=== PATIENT | female | born 1960 | race Caucasian/White ===

== ENCOUNTER 2017-09-05 11:26 | Emergency (ER) | payer OTHER ==
[2017-09-05] MEDS ORDERED: IPRATROPIUM/ALBUTEROL SULFATE 3 ML AMPUL.NEB NEB ONE (11:51)
--- NOTE | 2017-09-05 12:38 | ED Physician Documentation ---
General Adult - HISTORIAN Historian: patient - HPI Stated Complaint: cough, wheezing, fever Chief Complaint: General Adult Onset: days ago Timing: still present Severity: moderate Further Comments: yes (Pt is a 56 yo female who has had cough, fever, congestion for about 1 week. Pt initially had a sore throat and fever, but these are improved. Pt has had wheezing, though she does not have an asthma hx. ) - ROS CONST: fever, chills, other (malaise) EYES/ENT: sore throat CVS/RESP: shortness of breath (mild), cough, other (wheezing) GI/: none MS/SKIN/LYMPH: none - PAST HX Past History: none Allergies/Adverse Reactions: Allergies Allergy/AdvReac Type Severity Reaction Status Date / Time No Known Allergies Allergy Verified 09/05/17 11:40 Home Medications: Ambulatory Orders Medication Instructions Recorded Bupropion HCl [Bupropion HCl Sr] 150 mg PO BID 05/13/14 - SOCIAL HX Smoking History: cigarettes - FAMILY HX Family History: No - VITAL SIGNS Vital Signs: Vital Signs Temp Pulse Resp BP Pulse Ox 98.1 F 63 24 173/72 98 09/05/17 11:37 09/05/17 11:37 09/05/17 11:37 09/05/17 11:37 09/05/17 11:37 - REVIEWED ASSESSMENTS Nursing Assessment Reviewed: Yes Vitals Reviewed: Yes Progress - Progress Progress: Rx Z-roma (Azithromycin). Use as directed on package. Rx Albuterol (90 mcg/spray) MDI. Take 2 puffs every 4 to 6 hrs as needed for wheezing or cough. ED Results Lab/Radiology - Orders Orders: ED Orders Category Date Time Status CHEST 2 VIEW [CHEST P.A.&LAT 2 VIEWS] [RAD] Stat Exams 09/05/17 Ordered INFLUENZA A&B Stat Lab 09/05/17 11:50 Ordered Rapid Strep [GRP A STREP SCREEN] Stat Lab 09/05/17 Ordered Ipratropium/Albuterol Sulfate [Duoneb] Med 09/05/17 11:51 Discontinued 3 ml NEB NOW ONE General Adult Physical Exam - PHYSICAL EXAM GENERAL APPEARANCE: mild distress EENT: pharynx normal NECK: normal inspection, supple RESPIRATORY: chest non-tender, wheezes CVS: reg rate & rhythm, heart sounds normal ABDOMEN: soft, no organomegaly, normal bowel sounds BACK: normal inspection, no CVA tenderness SKIN: warm/dry, normal color EXTREMITIES: non-tender, normal range of motion, no evidence of injury, no edema NEURO: oriented X3, motor nml, sensation nml Discharge Clincal Impression: Bronchitis Referrals: Manuelito Wallace [Primary Care Provider] - Condition: Good Disposition: 01 HOME, SELF-CARE Decision to Admit: NO Decision Time: 12:38
[2017-09-05 12:41] VITALS: BP 157/68
--- NOTE | 2017-09-05 20:03 | Diagnostic Imaging Report ---
[facility] [id number] [facility] [address] [address] Report Submission Date: Sep 05, 2017 12:27:24 PM [employer] [employer] Patient Study Name: LENIN MCCONNELL Date: Sep 05, 2017 12:13:54 PM [employer] [employer] Modality Type: CR Gender: F Description: CHEST : 58 Institution: [facility] Physician: [facility] Chest -two views CLINICAL HISTORY: Cough. Congestion. Fever for 1 week. FINDINGS: Examination of the chest in PA and lateral views with no prior film for comparison demonstrates lungs to be clear. Cardiovascular and mediastinal silhouettes are within normal limits for the patient's age. The aorta is atherosclerotic. Bony thorax is intact. IMPRESSION: Aortic atherosclerosis. No active disease. Electronically signed on Sep 05, 2017 12:27:24 PM [employer]LE [employer] by: James LEMOS
== END 2017-09-05 12:42 | disposition home or self-care (01) ==
LOC: ED 11:26
DX: J40 Bronchitis, not specified as acute or chronic (principal)
CPT/HCPCS: 71020; 87070; 87400; 87880; 99283